=== PATIENT | female | born 2000 | race Caucasian/White ===

== ENCOUNTER 2023-01-22 13:19 | Outpatient (REF) | payer OTHER, SELFPAY ==
--- NOTE | 2023-01-22 11:45 | PAPFT_PTH ---
PATIENT: Carmen Clark [id number] AGE/SX: 22/F ROOM: RE01/22/[address]: Dipika Hernandez : 2000 BED: DIS: 01/22/2023 SPEC #: [id number] RECD: 01/23/23 12:58 STATUS: VÍCTOR REJace #: [id number] JERRY: 01/22/23 11:[address]: Dipika Hernandez DEPT: [facility] Cytology RECD BY: Cailin Velazquez Tissues: 1 - CX/ENDOCX FOR PAP SMEARS Procedures: PAP THIN PREP/[facility] Screening Comments: [id number] (CHLAMYDIA/GC)
[2023-01-24 10:05] LABS: Hepatitis C Ab w Rflx HCV PCR Negative (Negative)
[2023-01-24 10:22] LABS: HIV-1/2 Ag & Ab Screen Negative (Negative)
[2023-01-24 15:41] LABS: Chlamydia Result Negative (Negative); GC Result Negative (Negative)
== END 2023-01-22 13:20 | disposition home or self-care (01) ==
LOC: NCHCN 13:19
PROVIDERS: PCP Nurse Practitioner Family; Visit Provider Nurse Practitioner Family
DX: Z00.00 Encounter for general adult medical examination without abnormal findings (principal); Z11.4 Encounter for screening for human immunodeficiency virus [HIV]; Z11.59 Encounter for screening for other viral diseases; Z11.3 Encounter for screening for infections with a predominantly sexual mode of transmission; Z12.4 Encounter for screening for malignant neoplasm of cervix
CPT/HCPCS: 86803; 87389; 87491; 87591; 88142